=== PATIENT | male | born 1955 | race American Indian/Alaskan Native ===

== ENCOUNTER 2018-08-01 15:00 | Emergency (ER) | payer OTHER ==
[~2018-08-01] VITALS: Ht 165.1 cm; Wt 65.8 kg
[2018-08-01 15:11] VITALS: Ht 165.1 cm; Wt 65.8 kg
[2018-08-01 18:42] VITALS: BP 134/66
== END 2018-08-01 18:42 | disposition home or self-care (01) ==
LOC: ED 15:00
DX: T58.91XA Toxic effect of carbon monoxide from unspecified source, accidental (unintentional), initial encounter (principal); E11.9 Type 2 diabetes mellitus without complications; Y92.89 Other specified places as the place of occurrence of the external cause
CPT/HCPCS: 36600